=== PATIENT | male | born 1980 | race Two or more races ===

== ENCOUNTER 2019-06-02 17:59 | Emergency (ER) | payer OTHER ==
[~2019-06-02] VITALS: Ht 162.6 cm; Wt 92.5 kg
[2019-06-02 18:09] VITALS: Ht 162.6 cm; Wt 92.5 kg
[2019-06-02 22:59] VITALS: BP 144/86
== END 2019-06-02 22:58 | disposition home or self-care (01) ==
LOC: ED 17:59
DX: S86.812A Strain of other muscle(s) and tendon(s) at lower leg level, left leg, initial encounter (principal); S86.012A Strain of left Achilles tendon, initial encounter; X58.XXXA Exposure to other specified factors, initial encounter; Y93.89 Activity, other specified; Y92.89 Other specified places as the place of occurrence of the external cause; Y99.0 Civilian activity done for income or pay
CPT/HCPCS: Q0092